=== PATIENT | female | born 1955 | race Caucasian/White ===

== ENCOUNTER 2021-05-24 10:10 | Observation (INO) ==
[~2021-05-24 10:10] MED LIST: Buffered Lidocaine 1% SYRIN 1 ml INTRADERM ONE; Dexamethasone IV 4 MG/ML VIAL 1 ml VIAL ONE; Lactated Ringers 1000 ml BAG 1,000 ML IV SCH; Midazolam 2 mg/2 ml VIAL 1 mg/ml 2 ml VIAL (2 mg) ONE; ceFAZolin 1 GM ADVAN 1 GM ADDV.VIAL IVPB ONE; ceFAZolin 2 GM in NS PREMIX 2 GM/100 ML BAG IVPB ONE
[2021-05-24] MEDS ORDERED: Dexamethasone IV 4 MG/ML VIAL 1 ml VIAL ONE (10:49)
[2021-05-24] MEDS ORDERED: Lidocaine 2% PF 5 ML VIAL ONE (10:49)
[2021-05-24] MEDS ORDERED: Ketamine HCL 50 mg/ml 10 ml VIAL (500 MG) ONE (10:49)
[2021-05-24] MEDS ORDERED: Propofol 10 MG/ML 20 ML BTL ONE (10:49)
[2021-05-24] MEDS ORDERED: Rocuronium 50 mg VIAL 10 mg/ml 5 ml VIAL (50 mg) ONE (10:49)
[2021-05-24] MEDS ORDERED: fentaNYL 250 mcg/5 ml 50 MCG/ML 5 ml VIAL (250 MCG) ONE (10:49)
[2021-05-24] MEDS ORDERED: Ondansetron 4 mg VIAL 2 MG/ML 2 ml VIAL ONE (10:49)
[2021-05-24] MEDS ORDERED: Bupivacaine 0.5% SDV PF 30ML VIAL ONE (12:10)
[2021-05-24] MEDS ORDERED: Lidocaine 1% MPF 5 ML VIAL ONE (12:10)
[2021-05-24] MEDS ORDERED: ROPIVACAINE 5 MG/ML 30 ML BTL (0.5%) ONE (12:11)
[2021-05-24] MEDS ORDERED: diPHENhydraMINE IV 50 MG/ML 1 ml VIAL (BENADRYL) IV PRN ×2 (13:28→13:40)
[2021-05-24] MEDS ORDERED: Naloxone 0.4 mg VIAL 0.4 mg/ml 1 ml VIAL IV PRN ×2 (13:28→16:16)
[2021-05-24] MEDS ORDERED: DiMENhydriNATE IV 50 mg/ml 1 ml VIAL IV PUSH PRN (13:28)
[2021-05-24] MEDS ORDERED: diPHENhydraMINE 25 mg TAB PO PRN (13:40)
[2021-05-24] MEDS ORDERED: Ondansetron ODT 4 mg TAB 4 MG TAB PO PRN (13:40)
[2021-05-24] MEDS ORDERED: Lactulose 30 ml UDC PO PRN (13:40)
[2021-05-24] MEDS ORDERED: Ondansetron 4 mg VIAL 2 MG/ML 2 ml VIAL IV PRN (13:40)
[2021-05-24] MEDS ORDERED: Morphine 2 MG/ML SYRINGE IV PRN (13:40)
[2021-05-24] MEDS ORDERED: Magnesium Hydroxide LIQ 30 ML UDC PO PRN (13:40)
[2021-05-24] MEDS ORDERED: Acetaminophen IV 1 GM/100ML 100 ML IV ONE (13:43)
[2021-05-24] MEDS ORDERED: HYDROmorphone 1 MG/1 ML SYRINGE ONE ×2 (13:44→16:19)
[2021-05-24] MEDS ORDERED: Lactated Ringers 1000 ml BAG 1,000 ML IV SCH (14:00)
[2021-05-24] MEDS ORDERED: Phenylephrine 40 mcg/mL 10mL (400mcg) SYRINGE ONE (14:28)
[2021-05-24] MEDS ORDERED: fentaNYL 100 mcg/2 ml 50 MCG/ML VIAL ONE (15:47)
[2021-05-24] MEDS: fentaNYL 100 mcg/2 ml 50 MCG/ML VIAL IV PRN ×2 (15:49→15:58)
[2021-05-24] MEDS: HYDROmorphone 1 MG/1 ML SYRINGE IV PRN ×3 (16:21→16:44)
[2021-05-24] MEDS: Morphine ER 15 mg TAB ** extended release PO SCH (18:17)
[2021-05-24] MEDS ORDERED: HYLANDS LEG CRAMPS PO PRN (18:18)
[2021-05-24] MEDS ORDERED: HYLANDS LEG CRAMPS PO ONE (18:45)
[2021-05-24] MEDS: ceFAZolin 1 GM ADVAN 1 GM in NS 0.9% 50 ML 50 ML IVPB SCH (20:23)
[2021-05-24] MEDS: Magnesium Hydroxide LIQ 30 ML UDC PO SCH (20:23)
[2021-05-25] MEDS: ceFAZolin 1 GM ADVAN 1 GM in NS 0.9% 50 ML 50 ML IVPB SCH ×2 (03:43→11:47)
[2021-05-25 04:55] LABS: Hematocrit 32 % (35-47); Hemoglobin 10.7 g/dL (12.0-16.0); Mean Platelet Volume 6.7 fL (7.4-10.4); Platelet Count 180 10^3/uL (150-450)
[2021-05-25 05:16] LABS: Calcium 8.2 mg/dL (8.6-10.3); EGFR Non-African American 75.2 (>60); Potassium 4.2 mmol/L (3.5-5.0)
[2021-05-25] MEDS: Vitamin THERAPEUTIC TAB PO SCH (08:49)
[2021-05-25] MEDS: Morphine ER 15 mg TAB ** extended release PO SCH ×2 (08:49→20:49)
[2021-05-25] MEDS: Magnesium Hydroxide LIQ 30 ML UDC PO SCH ×2 (08:50→20:49)
[2021-05-26 08:03] LABS: Hematocrit 33 % (35-47); Hemoglobin 10.8 g/dL (12.0-16.0); Mean Platelet Volume 6.4 fL (7.4-10.4); Platelet Count 162 10^3/uL (150-450)
[2021-05-26] MEDS: Vitamin THERAPEUTIC TAB PO SCH (08:09)
[2021-05-26] MEDS: Magnesium Hydroxide LIQ 30 ML UDC PO SCH ×3 (08:09→19:50)
[2021-05-26] MEDS: Morphine ER 15 mg TAB ** extended release PO SCH ×2 (08:10→19:49)
[2021-05-27] MEDS: Morphine ER 15 mg TAB ** extended release PO SCH (09:34)
[2021-05-27] MEDS: Vitamin THERAPEUTIC TAB PO SCH (09:35)
[2021-05-27] MEDS: Magnesium Hydroxide LIQ 30 ML UDC PO SCH (09:35)
[2021-05-27 09:55] LABS: Hematocrit 30 % (35-47); Hemoglobin 10.1 g/dL (12.0-16.0); Mean Platelet Volume 6.9 fL (7.4-10.4); Platelet Count 164 10^3/uL (150-450)
[2021-05-27] MEDS ORDERED: Iohexol 350 (CONTRAST) 500 ML MDV IV ONE (10:24)
[2021-05-27 11:59] VITALS: BP 160/82
== END 2021-05-27 14:20 | disposition home or self-care (01) ==
LOC: SSU 10:10 → OR 10:10
PROVIDERS: ADMIT Orthopaedic Surgery Adult Reconstructive Orthopaedic Surgery; ATTEND Orthopaedic Surgery Adult Reconstructive Orthopaedic Surgery

== ENCOUNTER 2023-02-19 15:30 | Inpatient (IN) ==
[2023-02-19 18:59] LABS: ABS Eosinophils 0.4 10^3/uL (0.0-0.5); ABS Lymphocytes 0.8 10^3/uL (1.0-4.8); ABS Monocytes 0.5 10^3/uL (0.0-0.9); ABS Neutrophils 5.4 10^3/uL (1.5-7.6); ABS Nucleated RBC 0.01 10^3/ul; Eosinophil % 5.4 %; Hematocrit 37.6 % (35-45); Hemoglobin 12.6 g/dL (11.5-14.3); Lymphocyte % 11.1 %; Mean Corpuscular Hemoglobin 30.4 pg (27-33); Mean Corpuscular Hgb Conc 33.5 g/dL (31-36); Mean Corpuscular Volume 90.8 fL (80-97); Mean Platelet Volume 6.8 fL (7.5-11.2); Nucleated Red Blood Cells % 0.1 /100 WBC (0.0-0.4); Platelet Count 205 10^3/uL (150-450); Red Blood Count 4.14 10^6/uL (3.63-4.92); Red Cell Distribution Width 13.3 % (12-17); White Blood Count 7.1 10^3/uL (3.8-11.8)
[2023-02-19 19:07] LABS: INR 1.05 (0.88-1.18)
[2023-02-19] MEDS ORDERED: Albuterol/Ipratropium NEB.SOL (2.5/0.5 MG) 3 ML NEB.SOLN INH ONE (19:18)
[2023-02-19 19:21] LABS: High Sens Troponin Baseline 8 pg/mL (<15)
[2023-02-19 20:00] LABS: ALT 25 U/L (7-52); Albumin 4.3 g/dL (3.2-5.2); Albumin/Globulin Ratio 1.5 (1-3); Alkaline Phosphatase 81 U/L (35-149); Blood Urea Nitrogen 27 mg/dL (6-24); C Reactive Protein 4.69 mg/L (<8.01); CO2 Carbon Dioxide 25 mmol/L (22-32); Calcium 9.4 mg/dL (8.6-10.3); Chloride 107 mmol/L (101-111); Creatinine, Serum 0.88 mg/dL (0.51-0.95); Globulin 2.9 g/dL (2-4); Glucose 96 mg/dL (70-100); Sodium 138 mmol/L (135-145); Total Protein 7.2 g/dL (6.4-8.9)
[2023-02-19 20:21] LABS: High Sensitivity Troponin 1 Hr 8 pg/mL (<15)
[2023-02-19 21:01] LABS: Anion Gap 6 mmol/L (2-16)
[2023-02-19] MEDS ORDERED: Iodixanol (CONTRAST) 320 MG/ML 100 ML SDV IV ONE (21:18)
[2023-02-19 21:50] LABS: Potassium Redraw 4.3 mmol/L (3.5-5.0)
[2023-02-20] MEDS ORDERED: Albuterol HFA INHALER 8 gm MDI INH PRN (00:21)
[2023-02-20 02:00] LABS: PCO2 Arterial 55 mmHg (35-45); PO2 Arterial 78 mmHg (80-100)
[2023-02-20] MEDS ORDERED: Enoxaparin 40 MG/0.4 ML SYR SUBCUT SCH (02:00)
[2023-02-20 04:43] LABS: ABS Eosinophils 0.3 10^3/uL (0.0-0.5); ABS Lymphocytes 0.6 10^3/uL (1.0-4.8); ABS Monocytes 0.5 10^3/uL (0.0-0.9); ABS Neutrophils 3.2 10^3/uL (1.5-7.6); Eosinophil % 6.4 %; Hematocrit 36.4 % (35-45); Hemoglobin 12.1 g/dL (11.5-14.3); Lymphocyte % 13.3 %; Mean Corpuscular Hemoglobin 29.8 pg (27-33); Mean Corpuscular Hgb Conc 33.3 g/dL (31-36); Mean Corpuscular Volume 89.5 fL (80-97); Mean Platelet Volume 6.5 fL (7.5-11.2); Platelet Count 178 10^3/uL (150-450); Red Blood Count 4.07 10^6/uL (3.63-4.92); Red Cell Distribution Width 13.3 % (12-17); White Blood Count 4.7 10^3/uL (3.8-11.8)
[2023-02-20 05:18] LABS: Calcium 9.2 mg/dL (8.6-10.3); Creatinine, Serum 0.81 mg/dL (0.51-0.95); Magnesium 1.8 mg/dL (1.9-2.7); eGFR CKD-EPI 79.5 (>60)
[2023-02-20] MEDS: Enoxaparin 40 MG/0.4 ML SYR SUBCUT SCH (05:44)
[2023-02-20] MEDS ORDERED: Fluticasone NASAL SPRAY 50MCG 16 gm SPRAY BTL BOTH NARES PRN (05:50)
[2023-02-20] MEDS ORDERED: Magnesium Sulfate 2 gm BAG 2 GM/50 ML BAG IVPB ONE (07:39)
[2023-02-20] MEDS: oxyCODONE SR 15 mg TAB PO SCH ×2 (08:03→21:43)
[2023-02-20] MEDS ORDERED: OXYCODONE 15 MG PO SCH (09:00)
[2023-02-20] MEDS ORDERED: Labetalol 300 mg TAB PO SCH (09:00)
[2023-02-20] MEDS: Labetalol 300 mg TAB PO SCH ×2 (09:39→22:20)
[2023-02-21] MEDS: Enoxaparin 40 MG/0.4 ML SYR SUBCUT SCH (05:27)
[2023-02-21] MEDS: Labetalol 300 mg TAB PO SCH ×2 (08:41→20:46)
[2023-02-21] MEDS: oxyCODONE SR 15 mg TAB PO SCH ×2 (08:41→20:45)
[2023-02-22] MEDS: Enoxaparin 40 MG/0.4 ML SYR SUBCUT SCH (05:16)
[2023-02-22] MEDS: Labetalol 300 mg TAB PO SCH ×2 (09:00→19:54)
[2023-02-22] MEDS: oxyCODONE SR 15 mg TAB PO SCH ×2 (09:01→19:54)
[2023-02-23] MEDS: Enoxaparin 40 MG/0.4 ML SYR SUBCUT SCH (05:03)
[2023-02-23] MEDS: Labetalol 300 mg TAB PO SCH ×2 (09:25→21:46)
[2023-02-23] MEDS: oxyCODONE SR 15 mg TAB PO SCH ×2 (09:26→21:44)
[2023-02-23 14:49] LABS: PCO2 Arterial 54 mmHg (35-45); PO2 Arterial 81 mmHg (80-100)
[2023-02-24] MEDS: Enoxaparin 40 MG/0.4 ML SYR SUBCUT SCH (05:27)
[2023-02-24 06:02] LABS: PCO2 Arterial 59 mmHg (35-45); PO2 Arterial 92 mmHg (80-100)
[2023-02-24] MEDS: oxyCODONE SR 15 mg TAB PO SCH ×2 (09:16→20:47)
[2023-02-24] MEDS: Labetalol 300 mg TAB PO SCH ×2 (09:17→20:48)
[2023-02-25] MEDS: oxyCODONE SR 15 mg TAB PO SCH (07:56)
[2023-02-25] MEDS: Labetalol 300 mg TAB PO SCH (07:56)
[2023-02-25 09:56] LABS: ABS Eosinophils 0.2 10^3/uL (0.0-0.5); ABS Lymphocytes 0.5 10^3/uL (1.0-4.8); ABS Monocytes 0.4 10^3/uL (0.0-0.9); ABS Neutrophils 3.1 10^3/uL (1.5-7.6); ABS Nucleated RBC 0.01 10^3/ul; Hematocrit 38.3 % (35-45); Hemoglobin 12.8 g/dL (11.5-14.3); Lymphocyte % 12.6 %; Mean Corpuscular Hemoglobin 29.4 pg (27-33); Mean Corpuscular Hgb Conc 33.3 g/dL (31-36); Mean Corpuscular Volume 88.1 fL (80-97); Mean Platelet Volume 6.3 fL (7.5-11.2); Nucleated Red Blood Cells % 0.1 /100 WBC (0.0-0.4); Platelet Count 152 10^3/uL (150-450); Red Blood Count 4.35 10^6/uL (3.63-4.92); Red Cell Distribution Width 13.1 % (12-17); White Blood Count 4.2 10^3/uL (3.8-11.8)
[2023-02-25 10:29] LABS: Calcium 9.4 mg/dL (8.6-10.3); Magnesium 1.7 mg/dL (1.9-2.7); Potassium 3.8 mmol/L (3.5-5.0)
[2023-02-25] MEDS ORDERED: Potassium Chlor 20 meq TAB.ER PO ONE (10:37)
[2023-02-25] MEDS ORDERED: Magnesium Sulfate IV 3 GM in NS 0.9% 100 ml BAG 100 ML IVPB ONE (11:00)
[2023-02-25 12:35] VITALS: BP 137/76
[2023-02-25 13:22] LABS: Creatinine, Serum 0.61 mg/dL (0.51-0.95); eGFR CKD-EPI 97.9 (>60)
== END 2023-02-25 15:15 | disposition home or self-care (01) | DRG 205 ==
LOC: ED 15:30 → EDHOLD 15:30 → SUATTDRO 22:50 → EDHOLD 02-20 13:56 → MED 02-20 14:36 → SUATTDRO 02-22 08:01
PROVIDERS: ADMIT Hospitalist; ATTEND Internal Medicine

== ENCOUNTER 2024-10-07 11:28 | Inpatient (IN) ==
[2024-10-07] MEDS: methylPREDNISolone SOD SUCC 125 mg 2 ML VIAL IV ONE (12:54)
[2024-10-07 13:04] LABS: ABS Eosinophils 0.2 10^3/uL (0.0-0.5); ABS Lymphocytes 0.4 10^3/uL (1.0-4.8); ABS Monocytes 0.3 10^3/uL (0.0-0.9); ABS Neutrophils 2.6 10^3/uL (1.5-7.6); ABS Nucleated RBC 0.03 10^3/ul; Eosinophil % 6.1 %; Hematocrit 39.9 % (35-45); Hemoglobin 12.7 g/dL (11.5-14.3); Lymphocyte % 10.5 %; Mean Corpuscular Hemoglobin 31.8 pg (27-33); Mean Corpuscular Hgb Conc 31.8 g/dL (31-36); Mean Corpuscular Volume 99.9 fL (80-97); Mean Platelet Volume 7.4 fL (7.5-11.2); Nucleated Red Blood Cells % 0.8 %/100WBC (0.0-0.8); Platelet Count 127 10^3/uL (150-450); Red Blood Count 3.99 10^6/uL (3.63-4.92); Red Cell Distribution Width 15.8 % (12-17); White Blood Count 3.5 10^3/uL (3.8-11.8)
[2024-10-07 13:43] LABS: Albumin/Globulin Ratio 1.7 (1-3); Calcium 8.9 mg/dL (8.6-10.3); Creatinine, Serum 1.79 mg/dL (0.51-0.95); Globulin 2.3 g/dL (2-4); Potassium 4.2 mmol/L (3.5-5.0); Total Bilirubin 0.3 mg/dL (0.2-1.0); Total Protein 6.3 g/dL (6.4-8.9); eGFR CKD-EPI 30.5 (>60)
[2024-10-07] MEDS: Albuterol 2.5mg/3 ml (0.083%) NEB.SOLN INH ONE (14:57)
[2024-10-07 18:13] LABS: C Reactive Protein 7.08 mg/L (<8.01)
[2024-10-07] MEDS ORDERED: Triamcinolone 0.5% OINT 1 TUBE TOPICAL PRN (18:39)
[2024-10-07] MEDS: cefTRIAXone 1 gm/50 mL D5W 1 GM/50 ML BAG IV SCH (19:59)
[2024-10-07] MEDS: Enoxaparin 40 MG/0.4 ML SYR SUBCUT SCH (20:01)
[2024-10-07] MEDS: oxyCODONE SR 15 mg TAB PO SCH (20:03)
[2024-10-08 06:18] LABS: ABS Lymphocytes 0.5 10^3/uL (1.0-4.8); ABS Monocytes 0.4 10^3/uL (0.0-0.9); ABS Neutrophils 2.7 10^3/uL (1.5-7.6); ABS Nucleated RBC 0.01 10^3/ul; Hematocrit 37.2 % (35-45); Hemoglobin 12.4 g/dL (11.5-14.3); Lymphocyte % 14.1 %; Mean Corpuscular Hemoglobin 32.5 pg (27-33); Mean Corpuscular Hgb Conc 33.2 g/dL (31-36); Mean Corpuscular Volume 97.8 fL (80-97); Mean Platelet Volume 7.2 fL (7.5-11.2); Nucleated Red Blood Cells % 0.2 %/100WBC (0.0-0.8); Platelet Count 113 10^3/uL (150-450); Red Cell Distribution Width 15.6 % (12-17); White Blood Count 3.7 10^3/uL (3.8-11.8)
[2024-10-08 06:51] LABS: Calcium 8.6 mg/dL (8.6-10.3); Creatinine, Serum 1.25 mg/dL (0.51-0.95); Magnesium 1.8 mg/dL (1.9-2.7); Potassium 4.2 mmol/L (3.5-5.0); eGFR CKD-EPI 46.9 (>60)
[2024-10-08] MEDS: CMCS:Mirabegron 25 mg ER TAB (NF) PO SCH (09:22)
[2024-10-08] MEDS: methylPREDNISolone SOD SUCC 40 mg/ml 1 ml VIAL IV SCH (09:24)
[2024-10-08] MEDS: Lactated Ringers 1000 ml BAG 1,000 ML IV SCH (10:06)
[2024-10-08] MEDS: Labetalol 300 mg TAB PO SCH (13:29)
[2024-10-09] MEDS ORDERED: Albuterol/Ipratropium NEB.SOL (2.5/0.5 MG) 3 ML NEB.SOLN INH PRN (10:44)
[2024-10-09] MEDS: Albuterol/Ipratropium NEB.SOL (2.5/0.5 MG) 3 ML NEB.SOLN INH SCH (13:23)
[2024-10-10] MEDS ORDERED: Benzocaine/Menthol LOZ PO PRN (00:37)
[2024-10-10] MEDS: guaiFENesin/CODIENE 100mg/10mg 5 ML UDC PO PRN (00:52)
[2024-10-10 05:51] LABS: ABS Lymphocytes 0.5 10^3/uL (1.0-4.8); ABS Monocytes 0.2 10^3/uL (0.0-0.9); ABS Neutrophils 5.3 10^3/uL (1.5-7.6); ABS Nucleated RBC 0.01 10^3/ul; Hematocrit 39.3 % (35-45); Lymphocyte % 8.9 %; Mean Corpuscular Hemoglobin 31.7 pg (27-33); Mean Corpuscular Hgb Conc 33.1 g/dL (31-36); Mean Corpuscular Volume 95.8 fL (80-97); Mean Platelet Volume 7.3 fL (7.5-11.2); Nucleated Red Blood Cells % 0.1 %/100WBC (0.0-0.8); Platelet Count 142 10^3/uL (150-450); Red Cell Distribution Width 14.9 % (12-17); White Blood Count 6.1 10^3/uL (3.8-11.8)
[2024-10-10 06:24] LABS: Calcium 8.9 mg/dL (8.6-10.3); Creatinine, Serum 0.93 mg/dL (0.51-0.95); Potassium 4.2 mmol/L (3.5-5.0); eGFR CKD-EPI 66.9 (>60)
[2024-10-10 09:58] VITALS: BP 141/70
== END 2024-10-10 14:48 | disposition home or self-care (01) | DRG 189 ==
LOC: ED 11:28 → EDHOLD 11:28 → SUATTDRO 15:18 → MED 16:50
PROVIDERS: ADMIT Student in an Organized Health Care Education/Training Program; ATTEND Internal Medicine